=== PATIENT | female | born 1970 | race Asian ===

== ENCOUNTER 2022-05-28 03:04 | Emergency (ER) | payer SELFPAY ==
[~2022-05-28] VITALS: Ht 165.1 cm; Wt 56.7 kg
[2022-05-28 03:10] VITALS: BP_SYST 135
--- NOTE | 2022-05-28 03:10 | NUR ---
Patient to [facility] for evaluation. Side rails up.
--- NOTE | 2022-05-28 03:23 | NUR ---
ER at bedside examining patient.
[2022-05-28] MEDS ORDERED: BACITRACIN 1 GM OINT TP ONE (03:45)
--- NOTE | 2022-05-28 04:08 | NUR ---
Patient given written and verbal discharge instructions and verbalizes understanding. ER MD discussed with patient the results and treatment provided. Patient in stable condition. ID arm band removed. NO Rx of given. Patient educated on pain management and to follow up with PMD. Pain Scale 2/10. Opportunity for questions provided and answered. Medication side effect fact sheet provided.
[2022-05-28 04:10] VITALS: BP_SYST 130
--- NOTE | 2022-05-28 04:29 | NUR ---
Note undone in EDM - 05/28/22 at 0430 by [email or web address] Patient given written and verbal discharge instructions and verbalizes understanding. ER discussed with patient the results and treatment provided. Patient in stable condition. ID arm band removed. NO Rx of given. Patient educated on pain management and to follow up with PMD. Pain Scale 2/10. Opportunity for questions provided and answered. Medication side effect fact sheet provided.
== END 2022-05-28 04:10 ==
LOC: SED 03:04
DX: S50.01XA Contusion of right elbow, initial encounter (principal); I10 Essential (primary) hypertension; Z79.899 Other long term (current) drug therapy; Y04.8XXA Assault by other bodily force, initial encounter; Y93.89 Activity, other specified; Y92.89 Other specified places as the place of occurrence of the external cause; Y99.8 Other external cause status
CPT/HCPCS: 99283